=== PATIENT | female | born 1980 | race Caucasian/White ===

== ENCOUNTER 2016-10-22 11:50 | Inpatient (IN) | payer OTHER ==
[~2016-10-22] VITALS: Ht 162.5 cm; Wt 96.8 kg
[2016-10-22 12:00] VITALS: BP 137/83
[2016-10-22 12:30] VITALS: BP 137/83
[2016-10-22 12:55] LABS: BASO % 0.3 % (0.0-1.0); EOS % 0.2 % (1.0-4.0); HEMATOCRIT 41.6 % (37.0-47.0); HEMOGLOBIN 13.9 g/dl (12.0-16.0); IG # 0.1 10*3/uL (0.0-0.1); LYMPH # 2.2 10*3/uL (1.3-4.4); LYMPH % 19.8 % (27.0-41.0); MEAN CELL VOLUME 78.3 fl (81.0-99.0); MEAN CORPUSCULAR HGB 26.2 pg (27.0-31.0); MEAN CORPUSCULAR HGB CONC 33.4 g/dl (33.0-37.0); MEAN PLATELET VOLUME 8.7 fl (9.6-12.3); MONO # 0.6 10*3/uL (0.1-1.0); MONO % 5.1 % (3.0-9.0); NEUT # 8.2 10*3/uL (2.3-7.9); NEUT % 74.1 % (47.0-73.0); PLATELET COUNT AUTOMATED 320 10*3/uL (130-400); RED BLOOD COUNT 5.31 10*6/uL (4.10-5.10); RED CELL DISTRI WIDTH 13.2 % (0-14.5); WHITE BLOOD COUNT 11.1 10*3/uL (4.8-10.8)
[2016-10-22 13:03] LABS: PROTHROMBIN TIME 10.2 SECONDS (9.0-12.4)
[2016-10-22 13:08] LABS: ALBUMIN 3.3 gm/dl (3.1-4.5); ALKALINE PHOSPHATASE 113 U/L (45-117); BILIRUBIN, TOTAL 0.5 mg/dl (0.2-1.0); BUN 11 mg/dl (7-24); CARBON DIOXIDE 24 mmol/L (21-32); CHLORIDE 105 mmol/L (98-107); EST GLOM FILT AFRICAN AMERICAN > 60 ml/min; GLUCOSE 93 mg/dL (65-99); POTASSIUM 3.8 mmol/L (3.5-5.1); SGOT/AST 22 IU/L (3-35); SGPT/ALT 25 U/L (12-78); SODIUM 139 mmol/L (136-145); TOTAL PROTEIN 8.4 gm/dL (6.4-8.2)
[2016-10-22 13:10] LABS: BILIRUBIN NEGATIVE (NEGATIVE); BLOOD NEGATIVE (NEGATIVE); CLARITY CLOUDY (CLEAR); COLOR YELLOW (YELLOW); GLUCOSE NEGATIVE (NEGATIVE); KETONE NEGATIVE (NEGATIVE); LEUKO ESTERASE TRACE (NEGATIVE); NITRITE NEGATIVE (NEGATIVE); PH 5.5 (5.0-9.0); PROTEIN 1+ (NEGATIVE); SPECIFIC GRAVITY >= 1.030 (1.005-1.030)
[2016-10-22 13:25] LABS: BACTERIA TRACE; CALCIUM OXALATE CRYSTALS 1+; HYALINE CAST 16-20; URINE REFLEX COMMENT YES (NO)
[2016-10-22 13:30] LABS: URINE AMPHETAMINES < 1000 (1000ng/ml); URINE BARBITURATES < 200 (200ng/ml); URINE COCAINE < 300 (300ng/ml)
[2016-10-22] MEDS ORDERED: GABAPENTIN400 MG PO (14:23)
[2016-10-22] MEDS ORDERED: REMERON15 M2 PO (14:24)
[2016-10-22] MEDS ORDERED: FETZIMA80 M1 PO (14:24)
[2016-10-22] MEDS ORDERED: CLONIDINE0.2 MG PO (14:25)
[2016-10-22] MEDS ORDERED: ZOLOFT100 MG PO (14:25)
[2016-10-22] MEDS ORDERED: GEODON80 MG PO (14:26)
[2016-10-22] MEDS ORDERED: GEODON40 MG PO (14:26)
[2016-10-22] MEDS ORDERED: AMBIEN10 M1 PO (14:27)
[2016-10-22 16:00] VITALS: BP 133/67
[2016-10-22 20:00] VITALS: BP 153/80
[2016-10-23] VITALS: BP 125/71
[2016-10-23 08:00] VITALS: BP 111/53; BP 151/70
[2016-10-23 12:00] VITALS: BP 134/67
[2016-10-23 16:00] VITALS: BP 127/75
[2016-10-23 20:00] VITALS: BP 120/73
[2016-10-24] VITALS: BP 117/64
[2016-10-24 08:00] VITALS: BP 138/81
[2016-10-24 12:00] VITALS: BP 112/64
[2016-10-24 16:00] VITALS: BP 126/67
[2016-10-24 20:00] VITALS: BP 117/95
[2016-10-25] VITALS: BP 122/81
[2016-10-25 05:58] LABS: EST GLOM FILT AFRICAN AMERICAN > 60 ml/min
[2016-10-25 06:02] LABS: BASO % 0.6 % (0.0-1.0); EOS # 0.1 10*3/uL (0.0-0.4); EOS % 1.8 % (1.0-4.0); HEMATOCRIT 39.8 % (37.0-47.0); HEMOGLOBIN 13.1 g/dl (12.0-16.0); LYMPH # 3.9 10*3/uL (1.3-4.4); LYMPH % 53.9 % (27.0-41.0); MEAN CELL VOLUME 78.5 fl (81.0-99.0); MEAN CORPUSCULAR HGB 25.8 pg (27.0-31.0); MEAN CORPUSCULAR HGB CONC 32.9 g/dl (33.0-37.0); MEAN PLATELET VOLUME 9.5 fl (9.6-12.3); MONO # 0.4 10*3/uL (0.1-1.0); MONO % 4.8 % (3.0-9.0); NEUT # 2.8 10*3/uL (2.3-7.9); NEUT % 38.8 % (47.0-73.0); PLATELET COUNT AUTOMATED 293 10*3/uL (130-400); RED BLOOD COUNT 5.07 10*6/uL (4.10-5.10); RED CELL DISTRI WIDTH 13.1 % (0-14.5); WHITE BLOOD COUNT 7.3 10*3/uL (4.8-10.8)
[2016-10-25 08:00] VITALS: BP 110/78
[2016-10-25] MEDS ORDERED: CARBIDOPA/LEVOD1 TA1 PO (10:33)
[2016-10-25] MEDS ORDERED: ATARAX,VISTARIL50 MG PO (10:33)
== END 2016-10-25 11:45 | disposition home or self-care (01) | DRG 897 ==
LOC: 4E 11:50
PROVIDERS: Internal Medicine; Internal Medicine Hospice and Palliative Medicine
DX: F11.23 Opioid dependence with withdrawal (principal); F31.9 Bipolar disorder, unspecified; I10 Essential (primary) hypertension; G25.81 Restless legs syndrome; G47.00 Insomnia, unspecified; F17.200 Nicotine dependence, unspecified, uncomplicated; F17.210 Nicotine dependence, cigarettes, uncomplicated; Z98.51 Tubal ligation status; Z71.6 Tobacco abuse counseling; Z79.899 Other long term (current) drug therapy